=== PATIENT | female | born 1930 | race African-American/Black ===

== ENCOUNTER 2019-02-07 04:39 | Emergency (ER) | payer MEDICARE ==
--- NOTE | 2019-02-07 08:35 | RADIOLOGY REPORT (SQ) ---
EXAM: CT head without IV contrast CLINICAL DATA: trauma, fall TECHNICAL DATA: Multiple axial CT images of the brain were performed followed by sagittal and coronal reconstructed images. The CT study is performed according to ALARA (as low as reasonably achievable) or ALARA/IMAGE GENTLY, with automatic adjustment of mA and/or kV according to patient size. Performed on: 02/07/2019 at 7:36 AM Comparisons: 03/08/2013. FINDINGS: There is no evidence of mass, acute mass effect or midline shift. There are no acute extra-axial fluid collections. There is no evidence of acute intracranial hemorrhage. There is a stable calcified mass along the posterior right parietal convexity most consistent with a meningioma. This measures approximately 1.3 x 1.2 cm in cross-sectional diameter. The cerebral sulci and ventricles are prominent consistent with moderate cerebral volume loss. There are scattered areas of decreased attenuation within the subcortical and periventricular white matter most likely due to mild chronic microangiopathy. 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 There is no significant mucosal thickening of the paranasal sinuses. The mastoid air cells are clear. The orbital contents are grossly unremarkable. No acute osseous abnormalities are identified. No focal soft tissue abnormalities are identified. There are atherosclerotic calcifications along the cavernous carotid arteries. IMPRESSION: 1. There is no evidence of acute intracranial pathology. 2. 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 3. Stable calcified mass along the posterior right parietal convexity most consistent with a meningioma. This measures approximately 1.3 x 1.2 cm in cross-sectional diameter.
--- NOTE | 2019-02-07 08:41 | RADIOLOGY REPORT (SQ) ---
EXAM: CT cervical spine without intravenous contrast CLINICAL DATA: 88-year-old female status post fall with neck pain. TECHNICAL DATA: Multiple high-resolution thin axial CT images were performed through the cervical spine followed by sagittal and coronal reconstructed images. The CT study is performed according to ALARA (as low as reasonably achievable) or ALARA/IMAGE GENTLY, with automatic adjustment of mA and/or kV according to patient size. Performed on: 02/07/2019 at 7:39 AM COMPARISONS: None. FINDINGS: The cervical vertebrae are normal in height. There is straightening of the normal cervical lordosis. There is mild disc space narrowing throughout the cervical spine. Bone mineralization is normal. The atlanto-axial articulation is preserved and the odontoid process is intact. There are moderate degenerative changes of the atlantoaxial articulation. There is mild degenerative spurring along the cervical spine. There is normal alignment of the facet joints on the parasagittal images. There are degenerative changes of the facet joints. There is no evidence of acute fracture or subluxation. There is mild C3-C4 and C4-C5 canal stenosis secondary to disc osteophyte complexes. There is multilevel bilateral neural foraminal stenosis secondary to uncovertebral joint and facet joint hypertrophy. The paravertebral and paraspinal soft tissues are unremarkable. The lung apices are clear. There are vascular calcifications. IMPRESSION: 1. No evidence of acute osseous injury involving the cervical spine. 2. Degenerative changes of the cervical spine as described above.
--- NOTE | 2019-02-07 09:04 | ER Document Report ---
Entered by NEGRITA ORNELAS SCRIBE 02/07/19 0848 Acting as scribe for:DANII BACH MD ED Fall - General Chief Complaint: Fall Injury Stated Complaint: FALL Time Seen by Provider: 02/07/19 08:21 Primary Care Provider: GAL HALL MD [Primary Care Provider] - Follow up as needed Information source: Patient, Relative Notes: Patient is an 88-year-old female who presents to the emergency department today due to mechanical fall that occurred just prior to arrival. Patient states she was coming back from the bathroom this morning at 0430, went to brace herself against her recliner foot rest which "gave out" causing her to fall. Patient has a small cut to the right side of her head and she also complains of right hand/wrist "stiffness". Patient reports no pain whatsoever including in the right hand or wrist. TRAVEL OUTSIDE OF THE [place] IN LAST 30 DAYS: No - Related data Allergies/Adverse Reactions: No Known Drug Allergies Allergy (Verified 03/07/13 19:22) Past Medical History - General Information source: Patient - Social History Smoking Status: Never Smoker Cigarette use (# per day): No Frequency of alcohol use: None Drug Abuse: None Lives with: Family Family History: Reviewed & Not Pertinent Patient has suicidal ideation: No Patient has homicidal ideation: No - Past Medical History Cardiac Medical History: Reports: Hx Congestive Heart Failure - By kia garner, 2013, Hx Hypercholesterolemia, Hx Hypertension, Hx Peripheral Vascular Disease Neurological Medical History: Reports: Hx Cerebrovascular Accident Endocrine Medical History: Reports: Hx Diabetes Mellitus Type 2 Musculoskeletal Medical History: Reports Hx Arthritis Past Surgical History: Reports: Other - 15 cm small bowel removed - Immunizations Hx Diphtheria, Pertussis, Tetanus Vaccination: No Review of Systems - Review of Systems Constitutional: See HPI, Other - fall, hit head EENT: No symptoms reported Cardiovascular: No symptoms reported Respiratory: No symptoms reported Gastrointestinal: No symptoms reported Genitourinary: No symptoms reported Female Genitourinary: No symptoms reported Musculoskeletal: See HPI, Muscle stiffness - right wrist/hand Skin: No symptoms reported Hematologic/Lymphatic: No symptoms reported Neurological/Psychological: denies: Lost consciousness -: Yes All other systems reviewed and negative Physical Exam - Vital signs Vitals: Temp Pulse Resp BP Pulse Ox 98 F 67 19 160/67 H 99 02/07/19 04:47 02/07/19 04:47 02/07/19 04:47 02/07/19 04:47 02/07/19 04:47 - Notes Notes: Physical Exam: General: Alert, appears well. HEENT: Normocephalic. PERRL. Extraocular movements intact. Oropharynx clear. Small crush/puncture in the skin over the right posterior lateral scalp with clotted blood. Neck: Supple. Non-tender. Respiratory: No respiratory distress. Clear and equal breath sounds bilaterally. Cardiovascular: Regular rate and rhythm. Abdominal: Normal Inspection. Non-tender. No distension. Normal Bowel Sounds. Back: No gross abnormalities. Extremities: Moves all four extremities. Upper extremities: Complains of right hand/wrist "stiffness", able to forcibly flex all fingers into a fist without pain. Able to passively flex and extend wrist without pain. Lower extremities: 2+ lower extremity edema. Normal ROM. Neurological: Normal cognition. AAOx4. Normal speech. Psychological: Normal affect. Normal Mood. Skin: Warm. Dry. Normal color. Course - Vital Signs Vital signs: Temp Pulse Resp BP Pulse Ox 97.5 F 82 18 176/77 H 100 02/07/19 09:04 02/07/19 09:04 02/07/19 09:04 02/07/19 09:04 02/07/19 09:04 Discharge - Discharge Clinical Impression: Fall Qualifiers: Encounter type: initial encounter Qualified Code(s): W19.XXXA - Unspecified fall, initial encounter Scalp contusion Qualifiers: Encounter type: initial encounter Qualified Code(s): S00.03XA - Contusion of scalp, initial encounter Occipital scalp laceration Qualifiers: Encounter type: initial encounter Qualified Code(s): S01.01XA - Laceration without foreign body of scalp, initial encounter Condition: Stable Disposition: HOME, SELF-CARE Additional Instructions: CT scans of the head, brain, and neck do not show any new problems or injuries. Use ice packs to the scalp injured area to reduce swelling. Try not to disturb the clotted blood over the scalp injury. Follow-up with your primary care provider as needed. RETURN TO THE EMERGENCY ROOM IF ANY NEW OR WORSENING SYMPTOMS. Referrals: GAL HALL MD [Primary Care Provider] - Follow up as needed Scribe Attestation: 02/07/19 08:48 I personally performed the services described in the documentation, reviewed and edited the documentation which was dictated to the scribe in my presence, and it accurately records my words and actions. I personally performed the services described in the documentation, reviewed and edited the documentation which was dictated to the scribe in my presence, and it accurately records my words and actions.
[2019-02-07 09:27] VITALS: BP 176/77
== END 2019-02-07 09:28 | disposition home or self-care (01) ==
LOC: ER 04:39
DX: S01.01XA Laceration without foreign body of scalp, initial encounter (principal); M25.631 Stiffness of right wrist, not elsewhere classified; W19.XXXA Unspecified fall, initial encounter; I50.9 Heart failure, unspecified; I11.0 Hypertensive heart disease with heart failure; E11.9 Type 2 diabetes mellitus without complications
CPT/HCPCS: 70450; 72125; 99283